=== PATIENT | male | born 1970 | race African-American/Black ===

== ENCOUNTER → 2019-01-11 | Outpatient (CLI) | payer BC ==
[~2019-01-11] VITALS: Ht 172.7 cm; Wt 102.5 kg
[~2019-01-11] MED LIST: ADVIL PM CAPLE1 EACH; ALLEGRA ALLERG180 MG; CLARITIN10 M2; FOLIC ACID1 MG PO; HUMIRA10 MG/0.2 SUBQ; HYDROCODONE-AP1 EAC6; IBUPROFEN 800800 M1; METHOTREXATE 22.5 M1 PO; PREDNISONE 10 M10 MG PO; RAYOS5 MG PO; ZYRTEC10 MG
[2019-01-11 13:31] VITALS: BP 123/83
--- NOTE | 2019-01-11 13:56 | NUR ---
Pain Clinic Assessment: 1. History of Osteoarthritis: CERVICAL ARTHITIS History of Rheumatoid Arthritis: Left Lower Extremity Left Upper Extremity Right Lower Extremity Right Upper Extremity 2. Height: 5 ft. 8 in. 172.7 cm. Weight: 226.0 lb. oz. 102.513 kg. Patient's BMI: 34.4 3. Vital Signs: BP: 123/83 Pulse: 67 Resp: 16 Temp: 02 Sat: 98 ECG Mon: 4. Pain Intensity: 10 5. Fall Risk: Dizziness: N Needs help standing or walking: N Fallen in the last 3 months: N Fall risk comments: 6. Patient on Blood Thinner: None 7. History of Hypertension: N 8. Opioid Therapy greater than 6 weeks: Y Opiate Contract Signed: 9. Risk Assessment Tool Provided: 10. Functional Assessment Tool: 11. Recreational Drug Use: Never Drug Type: Tobacco Use: Never Smoker Tobacco Type: Amount or Packs/day: How Many Years: Alcohol Use: Yes Frequency: Weekly Quant: 2
--- NOTE | 2019-01-18 12:48 | HPC ---
[facility] [address] [place] [address] PAIN MANAGEMENT CONSULTATION Name: LILLIAN WRIGHT [id number] Admission: 01/11/19 Attend Phys: Marcial Harrison DO Discharge: Date of : 70 Report #: [id number] THIS REPORT FOR: //name// CC: Marcial Menchaca MD DATE OF SERVICE: 01/11/2019 CHIEF COMPLAINT: Neck pain, left upper extremity pain with paresthesias. HISTORY OF PRESENT ILLNESS: As you know, the patient is a very pleasant 48-year-old male who reports acute onset of neck pain, left upper extremity pain with paresthesias that presented on 10/16/2018. The patient states that he was doing some lifting at the gym and felt pain in the left neck. He believes he may have strained his cervical musculature. He states that over the next couple of days, his pain began to intensify. He trialed [id number] conservative treatments and stretching exercises. It did not improve the patient's overall pain. He subsequently returned to his chemical plant worker Dr. Alexy Menchaca who had x-ray imaging of the cervical spine obtained, which showed mild to moderate degenerative changes at C4-C5, C5-C6 and C6-C7. The patient continued to trial medications utilizing nonsteroidal anti-inflammatories and a dosing of steroids. This did not improve the patient's overall pain. He then underwent MRI of the cervical spine which showed changes at the C6-C7 level consistent with the patient's overall pain. He was then referred to our clinic to discuss treatment options. The patient indicates today pain is continuous, steady and constant. He describes the pain as numbness, tingling, shooting, aching, stabbing, sharp and pulling in nature. He places current pain score 10/10, daily average at 10/10, worst pain has been is 10/10. The patient indicates that "everything" exacerbate symptoms, nothing appears to improve pain. He has been referred to our service to discuss treatment options for suspected cervical radiculopathy involving the left upper extremity. PAST MEDICAL HISTORY: 1. Chronic stomach problems. 2. Rheumatoid arthritis. PAST SURGICAL HISTORY: 1. Cholecystectomy. 2. ACL and MCL repair. SOCIAL HISTORY: The patient denies tobacco, IV or illicit drug use. Admits to approximately 2 alcohol beverages per week. He is currently employed as a senior manager creative services. He is working, not receiving workmen's compensation or is [address] [address] PAIN MANAGEMENT CONSULTATION Name: LILLIAN WRIGHT Room #: REG [facility] Venu#: [id number] Admission: 01/11/19 Attend Phys: Marcial Harrison DO Discharge: Date of : 70 Report #: [id number] trying to obtain disability benefits. He is unaccompanied at today's visit. REVIEW OF SYSTEMS: Positive for decrease in appetite, fever, night sweats, fatigue and weakness, frequent and recurrent headaches, wearing corrective eyewear, blurred vision, nosebleeds, chest pain, nocturia, numbness and tingling sensations involving the neck and left upper extremity, memory loss with confusion, nervousness, depression, insomnia, excessive thirst, urination, heat and cold intolerance. All other review of systems negative per 12-point review of systems other than those listed in history of present illness. Pain impact score 50/60 indicating severe interference of daily activities secondary to pain. IMAGING: MRI cervical spine obtained 12/31/2018 shows C2-C3 unremarkable, C3-C4 essentially unremarkable. C4-C5, there is moderate left foraminal narrowing with thecal sac measuring 1 cm, C5-C6 mild left foraminal narrowing, effacement of the ventral thecal sac measuring 1 cm. C6-C7 disk osteophyte complex, uncinate process spurring, greater on the left. There is severe left neural foraminal narrowing, thecal sac measuring 1 cm. C7-T1 facet hypertrophy, mild foraminal narrowing, thecal sac measures 1.3 cm. PHYSICAL EXAMINATION: VITAL SIGNS: Blood pressure 123/83, pulse 67, respiratory rate 16 and unlabored. The patient is 98% on room air. Height 5 feet 8 inches tall, weight 226 pounds, BMI calculated 34.4. GENERAL: Well-developed, well-nourished, well-hydrated, 48-year-old male. He appears his stated age. He is in no acute distress, awake, alert and oriented x 3. Current pain score is rated at 10/10. HEENT: Normocephalic, atraumatic. Pupils equal, round, reactive to light. Extraocular muscles are intact. Sclerae nonicteric without injection. NEUROLOGIC: Cranial nerves 2-12 grossly intact. Speech is fluent. The patient deemed a good historian. LUNGS: Clear, no wheeze, rhonchi or rales. CARDIOVASCULAR: Regular. No appreciable gallop, no rub. ABDOMEN: Soft, nontender, nondistended, normal active bowel sounds. EXTREMITIES: Show no clubbing, no cyanosis, and no edema. MUSCULOSKELETAL: Upper extremity strength appears symmetrical 5/5. Muscle bulk and tone equal and symmetrical in comparing left upper extremity and right. There is decreased tactile sensation along the C6 dermatome on the left when compared to the right. This is noted in the distal portion. There are no changes in skin color or texture overlying area. Cervical provocation testing is met with increased pain with lateral flexion and rotation to the left. Spurling's test positive left. Deep tendon reflexes are symmetrical at biceps, brachialis and triceps. ASSESSMENT: [facility] [address] [place] [address] PAIN MANAGEMENT CONSULTATION Name: ADRIANALILLIANNATA JOHNSON Room #: [facility] [id number] Admission: 01/11/19 Attend Phys: Marcial Harrison DO Discharge: Date of : 70 Report #: [id number] 1. Cervical radiculopathy. 2. 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 3. Cervical spondylosis with radiculopathy. 4. Cervical degeneration. 5. Intractable pain. PLAN: 1. Based on today's physical exam and history the patient has provided, the description the patient uses in regards to pain as well as the distribution of symptoms radiating into the thumb, first digit and second digit on the left hand would correlate to the findings at the C6-C7 level from MRI of 12/31/2018. This would indicate the patient is suffering from cervical radiculopathy secondary to the neural foraminal stenosis. We discussed with the patient treatment options for neural foraminal stenosis causing cervical radiculopathy. The following was discussed with the patient today. 2. We discussed formalized physical therapy with stretching exercises and traction techniques to alleviate the foraminal compressive forces on the left side. This could provide the patient with good benefit. We discussed medication management utilizing neuropathic pain medications to address nerve related pain generation. We discussed cervical epidural injections for which the patient was referred to our clinic. We also discussed surgical options with the patient in the form of foraminal decompression. After reviewing the risks and benefits of all the proposed treatment options, the patient chose to make adjustments in medication management initially. If this is ineffective, move forward with a cervical epidural injection. 3. The patient will be started on gabapentin in the form of Gralise given his current work condition and his side effects to previous medications. We recommend medication has a low long-term side effect, but gives good efficacy. He will not be able to take gabapentin immediate release due to his job requirements 3 times a day, which would preclude him from utilizing the immediate release formulation. We will start the patient on a Gralise pack we have in sample form today. 4. The patient will start at 600 mg starting this evening 2 hours before bedtime with a small amount of food. He will continue the titration of medication until he reaches efficacy or side effects he cannot tolerate. He is to watch for side effects of somnolence, decreased mental acuity, disorientation, confusion, mental slowing with use of medication. If he notes any side effects, reduce the dose of the medication to the prior dosing and contact our clinic. 5. We will begin the authorization process for the patient to obtain a cervical epidural injection under fluoroscopic guidance. At present, the patient wishes to trial more conservative treatment option, but will ultimately consider a cervical epidural injection if his symptoms do not improve. We will begin this authorization process immediately. 6. We will see the patient back in followup visit in approximately 2 weeks, this will give the patient a chance to titrate up on the Gralise and hopefully [address] [address] PAIN MANAGEMENT CONSULTATION Name: LILLIAN WRIGHT Room #: REG [facility] Lea#: [id number] Admission: 01/11/19 Attend Phys: Marcial Harrison DO Discharge: Date of : 70 Report #: [id number] receive benefit. Otherwise, we will look towards a cervical epidural injection. We wish to thank Dr. Menchaca for the referral of the patient to our clinic. We will keep you apprised of his response to treatment as we address cervical radiculopathy. Again, we wish to thank you for the opportunity to see the patient in consultation. <ELECTRONICALLY SIGNED> By: Marcial Harrison DO 01/18/19 [id number] Marcial Harrison DO /nt
== END ==
LOC: PAIN 10:53
DX: M50.123 Cervical disc disorder at C6-C7 level with radiculopathy (principal); M47.22 Other spondylosis with radiculopathy, cervical region; M48.02 Spinal stenosis, cervical region; G89.4 Chronic pain syndrome; R10.12 Left upper quadrant pain; M06.9 Rheumatoid arthritis, unspecified; Z90.49 Acquired absence of other specified parts of digestive tract; Z79.899 Other long term (current) drug therapy; Z79.891 Long term (current) use of opiate analgesic

== ENCOUNTER → 2019-01-25 | Outpatient (CLI) | payer BC ==
[~2019-01-25] VITALS: Ht 172.7 cm; Wt 105.5 kg
[2019-01-25 10:29] VITALS: BP 128/91
--- NOTE | 2019-01-25 10:50 | NUR ---
Pain Clinic Assessment: 1. History of Osteoarthritis: CERVICAL ARTHITIS History of Rheumatoid Arthritis: Left Lower Extremity Left Upper Extremity Right Lower Extremity Right Upper Extremity 2. Height: 5 ft. 8 in. 172.7 cm. Weight: 232.6 lb. oz. 105.507 kg. Patient's BMI: 35.4 3. Vital Signs: BP: 128/91 Pulse: 70 Resp: 16 Temp: 02 Sat: 100 ECG Mon: 4. Pain Intensity: 8 5. Fall Risk: Dizziness: N Needs help standing or walking: N Fallen in the last 3 months: N Fall risk comments: 6. Patient on Blood Thinner: None 7. History of Hypertension: N 8. Opioid Therapy greater than 6 weeks: Y Opiate Contract Signed: 9. Risk Assessment Tool Provided: 10. Functional Assessment Tool: 11. Recreational Drug Use: Never Drug Type: Tobacco Use: Never Smoker Tobacco Type: Amount or Packs/day: How Many Years: Alcohol Use: Yes Frequency: Quant:
== END | disposition home or self-care (01) ==
LOC: PAIN 06:45
DX: M50.13 Cervical disc disorder with radiculopathy, cervicothoracic region (principal); M99.71 Connective tissue and disc stenosis of intervertebral foramina of cervical region; M47.22 Other spondylosis with radiculopathy, cervical region; G89.29 Other chronic pain; M46.82 Other specified inflammatory spondylopathies, cervical region; Z79.899 Other long term (current) drug therapy; Z98.890 Other specified postprocedural states